=== PATIENT | female | born 2000 | race Hispanic/Latino ===

== ENCOUNTER 2022-05-04 09:09 | Emergency (ER) | payer SELFPAY ==
[2022-05-04 09:59] LABS: Absolute Lymphocytes (CBC) 1.7 K/uL (0.7-4.9); Hematocrit 35.3 % (36.0-45.0); Lymphocytes % 16.2 % (15.3-44.8); MCV 82.4 fL (80-100); MPV 8.1 fL (7.6-11.3); RBC Red Blood Cell Count 4.28 M/uL (3.86-4.86)
[2022-05-04] MEDS ORDERED: ONDANSETRON 4 MG/2 ML VIAL ONE (10:01)
[2022-05-04 10:10] LABS: Urine Blood Negative (Negative); Urine Glucose Negative (Negative); Urine Protein 1+ (Negative); Urine Specific Gravity >=1.030 (1.005-1.030)
[2022-05-04 10:26] LABS: Albumin 3.5 g/dL (3.4-5.0); Bilirubin Total 0.3 mg/dL (0.2-1.0); Potassium 3.9 mmol/L (3.5-5.1); Protein, Total 7.2 g/dL (6.4-8.2)
[2022-05-04 10:27] LABS: Urine Specific Gravity/Preg >1.030 (1.005-1.030)
--- NOTE | 2022-05-04 11:04 | RAD REPORT ---
EXAM DESCRIPTION: CT - Abdomen Pelvis W Contrast - 05/04/2022 10:49 am CLINICAL HISTORY: Abdominal pain COMPARISON: none. TECHNIQUE: Computed axial tomography of the abdomen pelvis was obtained. 100 cc Isovue-300 was admin istered intravenously. Oral contrast was not requested which limits evaluation of bowel and appendix All CT scans are performed using dose optimization technique as appropriate and may include automated exposure control or mA/KV adjustment according to patient size. FINDINGS: The liver, spleen, pancreas, adrenal and kidneys appear unremarkable. There is no evidence of diverticulitis. Normal appendix Dilated fluid-filled tubular structures are present within each adnexa probably fallopian tubes. Smal l amount of free fluid. IMPRESSION: Bilateral hydrosalpinx suspected. Further evaluation with ultrasound should helpful
--- NOTE | 2022-05-04 12:11 | RAD REPORT ---
EXAM DESCRIPTION: US - Transvaginal Study Probe - 05/04/2022 11:36 am CLINICAL HISTORY: Pelvic pain COMPARISON: CT abdomen May 04, 2022 FINDINGS: The uterus measures 9 x 4 x 5 cm. A fibroid is not seen. The endometrial stripe measures 6 millimeters The right ovary measures 4.9 x 2.5 x 2.1 centimeters. A tubular structure is present adjacent to the right ovary presumably a dilated fallopian tube. Left ovary normal in size and echotexture. 2 centimeter exophytic ovarian cyst suspected. Left adnexal unremarkable Small amount of free fluid IMPRESSION: Right hydrosalpinx with small amount of free fluid A 2 centimeter exophytic left ovarian cyst
--- NOTE | 2022-05-04 13:55 | ER ---
Nurse's Notes [facility] Name: Leigh Boss Age: 21 yrs Sex: Female : 2000 Arrival Date: 05/04/2022 Time: 09:12 Bed IW1 Private MD: Diagnosis: Lower abdominal pain, unspecified Presentation: 05/04 09:40 Chief complaint: Patient states: lower abd pain and vomiting since last night. iw Coronavirus screen: At this time, the client does not indicate any symptoms associated with coronavirus-19. Ebola Screen: Patient negative for fever greater than or equal to 101.5 degrees Fahrenheit, and additional compatible Ebola Virus Disease symptoms Patient denies exposure to infectious person. Patient denies travel to an Ebola-affected area in the 21 days before illness onset. No symptoms or risks identified at this time. Initial Sepsis Screen: Does the patient meet any 2 criteria? No. Patient's initial sepsis screen is negative. Does the patient have a suspected source of infection? No. Patient's initial sepsis screen is negative. Risk Assessment: Do you want to hurt yourself or someone else? Patient reports no desire to harm self or others. Onset of symptoms was May 03, 2022. 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 iw Vital Signs: 09:40 BP 122 / 63; Pulse 84; Resp 16; Temp 98.6; Pulse Ox 100% on R/A; Weight 63.5 kg; Height iw 5 ft. (152.40 cm); 09:40 Body Mass Index 27.34 (63.50 kg, 152.40 cm) iw ED Course: 09:12 Patient arrived in ED. mr 09:16 Grant Tamayo PA is PHCP. m 09:16 James Maher MD is Attending Physician. jmm 09:41 Triage completed. iw 09:50 Inserted saline lock: 22 gauge in right antecubital area, using aseptic technique. iw 10:51 CT Abd/Pelvis - IV Contrast Only In Process Unspecified. EDMS 11:38 US Transvaginal Study (Probe) In Process Unspecified. EDMS 14:01 Maria Guadalupe Trimble, RN is Primary Nurse. iw Administered Medications: 10:03 Drug: Zofran (Ondansetron) 4 mg Route: IVP; Site: left antecubital; jl7 Outcome: 13:59 Discharge ordered by . micki 14:01 Patient left the ED. iw Signatures: Dispatcher [employer] EDDE Grant Tamayo PA PA [facility] [place] Spence mr Maria Guadalupe Trimble, RN RN Berta Marshall RN RN jl7
--- NOTE | 2022-05-04 13:55 | EDPHYS ---
Physician Documentation [facility] Name: Leigh Boss Age: 21 yrs Sex: Female : 2000 Arrival Date: 05/04/2022 Time: 09:12 Bed IW1 Private MD: ED Physician James Maher HPI: 05/04 09:41 This 21 yrs old Female presents to ER via Ambulatory with complaints of jmm Abdominal Pain, Vomiting. 09:41 The patient presents with abdominal pain. Onset: The symptoms/episode began/occurred jmm gradually, yesterday. The symptoms do not radiate. Associated signs and symptoms: Pertinent positives: nausea and vomiting. The symptoms are described as achy, sharp. Modifying factors: The symptoms are alleviated by nothing, the symptoms are aggravated by nothing. The patient has not experienced similar symptoms in the past. Is a 21-year-old female with no chronic medical conditions the presents emerged department with complaints of lower abdominal pain and vomiting. Denies any diarrhea. Denies fever. Denies any recent antibiotic use. Denies any recent travel.. 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 09:41 Abdomen/GI: Positive for abdominal pain, nausea and vomiting. 09:41 All other systems are negative. Exam: 09:41 Constitutional: This is a well developed, well nourished patient who is awake, alert, jmm and in no acute distress. Head/Face: atraumatic. Eyes: EOMI, no conjunctival erythema appreciated ENT: Moist Mucus Membranes Neck: Trachea midline, Supple Chest/axilla: Normal chest wall appearance and motion. Cardiovascular: Regular rate and rhythm. No edema appreciated Respiratory: Normal respirations, no respiratory distress appreciated 09:41 Back: Normal ROM Skin: General appearance color normal MS/ Extremity: Moves all extremities, no obvious deformities appreciated, no edema noted to the lower extremities Neuro: Awake and alert Psych: Behavior is normal, Mood is normal, Patient is cooperative and pleasant 09:41 Abdomen/GI: Inspection: abdomen appears normal, Bowel sounds: normal, Palpation: soft, mild abdominal tenderness, in all quadrants. Vital Signs: 09:40 BP 122 / 63; Pulse 84; Resp 16; Temp 98.6; Pulse Ox 100% on R/A; Weight 63.5 kg; Height iw 5 ft. (152.40 cm); 09:40 Body Mass Index 27.34 (63.50 kg, 152.40 cm) iw MDM: 09:41 Patient medically screened. [facility] 13:42 Data reviewed: vital signs, nurses notes. Counseling: I had a detailed discussion with [facility] the patient and/or guardian regarding: lab results, radiology results. ED course: Patient eloped from the ED prior to final disposition. 05/04 09:44 Order name: CBC with Diff; Complete Time: 10:24 [facility] 05/04 09:44 Order name: CMP; Complete Time: 10:35 [facility] 05/04 09:44 Order name: Lipase; Complete Time: 10:35 [facility] 05/04 09:44 Order name: CT Abd/Pelvis - IV Contrast Only; Complete Time: 11:09 [facility] 05/04 10:10 Order name: Urine Dipstick-Ancillary [facility] 05/04 10:13 Order name: Urine --Ancillary (enter results); Complete Time: 10:35 05/04 09:44 Order name: IV Saline Lock; Complete Time: 09:50 [facility] 05/04 09:44 Order name: Labs collected and sent; Complete Time: 09:50 [facility] 05/04 09:44 Order name: Urine Dipstick-Ancillary (obtain specimen); Complete Time: 10:03 [facility] 05/04 09:44 Order name: Urine Test (obtain specimen); Complete Time: 10:03 [facility] 05/04 11:11 Order name: US Transvaginal Study (Probe); Complete Time: 12:13 [facility] 05/04 12:20 Order name: Pelvic Exam Setup [facility] Administered Medications: 10:03 Drug: Zofran (Ondansetron) 4 mg Route: IVP; Site: left antecubital; jl7 Disposition: 14:35 Co-signature as Attending Physician, James Maher MD I reviewed the patient's care rt provided by the Advanced Practice Provider and agree with the diagnosis and treatment plan. Disposition Summary: 05/04/22 13:59 Discharge Ordered Location: Home [facility] Condition: Stable [facility] Diagnosis - Lower abdominal pain, unspecified [facility] Followup: jmm - With: Private Physician - When: 2 - 3 days - Reason: Recheck today's complaints, Continuance of care, Re-evaluation by your physician Discharge Instructions: - Discharge Summary Sheet [facility] - Abdominal Pain, Adult [facility] Forms: - Medication Reconciliation Form [facility] - Thank You Letter [facility] - Antibiotic Education [facility] - Prescription Opioid Use [facility] Signatures: Dispatcher [employer] EDMS Grant Tamayo PA PA jmm Williams, Irene RN RN iw Berta Rodriguez RN RN jl7 James Maher MD MD rt Corrections: (The following items were deleted from the chart) 13:54 after being seen by provider micki sweet 13:59 13:54 wait time micki sweet 59 13:54 Abdominal pain, unspecified [facility]
[2022-05-04 14:23] VITALS: BP 122/63; TEMP 98.6; O2SAT 100
== END 2022-05-04 14:01 | disposition home or self-care (01) ==
LOC: ER 09:09
DX: R10.30 Lower abdominal pain, unspecified (principal); R11.2 Nausea with vomiting, unspecified
CPT/HCPCS: 36415; 74177; 76830; 80053; 81003; 81025; 83690; 85025; J2405; Q9967